=== PATIENT | female | born 1965 | race African-American/Black ===

== ENCOUNTER 2021-05-14 16:32 | Emergency (ER) | payer BC, OTHER ==
[~2021-05-14] VITALS: Ht 170.2 cm; Wt 124.3 kg
[2021-05-14] MEDS ORDERED: RYBELSUS3 MG PO (17:05)
[2021-05-14] MEDS ORDERED: OMEPRAZOLE40 MG PO ×2 (17:06→17:09)
[2021-05-14] MEDS ORDERED: DESLORATADINE5 M1 PO (17:06)
[2021-05-14] MEDS ORDERED: ALLOPURINOL 10100 M1 PO (17:07)
[2021-05-14] MEDS ORDERED: AVAPRO 150 MG150 M1 PO (17:07)
[2021-05-14] MEDS ORDERED: BLISOVI 24 FE1 EACH PO (17:07)
[2021-05-14] MEDS ORDERED: CENTRUM SILVER1 EAC6 PO (17:08)
[2021-05-14] MEDS ORDERED: SINGULAIR 10 MG10 MG PO (17:08)
[2021-05-14] MEDS ORDERED: COLCRYS0.6 MG PO (17:08)
[2021-05-14] MEDS ORDERED: PRAVACHOL 20 MG20 M1 PO (17:09)
[2021-05-14] MEDS ORDERED: VENLAFAXINE HCL75 M2 PO (17:09)
[2021-05-14] MEDS ORDERED: ALPRAZOLAM 0.50.5 MG PO (17:10)
[2021-05-14 17:43] LABS: ABSOLUTE NEUTROPHILS 3.5 thou/uL (1.4-8.2); BASOPHILS 0.7 % (0.0-2.0); EOSINOPHILS 5.8 % (0.0-3.0); HEMATOCRIT 41.3 % (37.0-47.0); HEMOGLOBIN 14.2 gm/dL (12.0-15.0); LYMPHOCYTES 27.8 % (24.0-44.0); MCH 29.8 pg (26.0-34.0); MCHC 34.3 g/dL (28.0-37.0); MONOCYTES 10.4 % (1.0-8.0); PLATELET COUNT 270 thou/uL (150-400); POLYS 55.3 % (36.0-66.0); RBC 4.75 mil/uL (4.20-5.00); RDW 13.8 % (10.5-14.5); WBC 6.4 thou/uL (4.0-11.0)
[2021-05-14 17:50] LABS: ANION GAP 9 mmol/L (7-16); BUN 18 mg/dL (7-18); CALCIUM 9.1 mg/dL (8.5-10.1); CHLORIDE 105 mmol/L (98-107); CO2 27 mmol/L (21-32); CREATININE 1.3 mg/dL (0.6-1.0); GLUCOSE 87 mg/dL (74-106); POTASSIUM 3.8 mmol/L (3.5-5.1); SODIUM 141 mmol/L (136-145)
[2021-05-14 18:00] LABS: ALBUMIN 3.8 g/dL (3.4-5.0); MAGNESIUM 2.2 mg/dL (1.8-2.4); SGOT 24 U/L (15-37); SGPT 33 U/L (30-65); TOTAL BILIRUBIN 0.4 mg/dL (0.2-1.0); TOTAL PROTEIN 7.3 g/dL (6.4-8.2); TROPONIN-I <0.06 ng/mL (<0.06)
[2021-05-14 18:43] VITALS: BP 152/78
--- NOTE | 2021-05-15 11:08 | EKG ---
[place] [address] [facility] [place] [address] ELECTROCARDIOGRAM REPORT Name: PATRICIAZAHEER Room #: DEP [facility] [id number] Admission: 05/14/21 Attend Phys: Discharge: 05/14/21 Date of : 65 Report #: [id number] [facility] ED Test Date: 2021-05-14 Test Time: 16:40:56 Pat Name: ZAHEER GOMEZ Department: Room: Gender: F [employer]: NAEL : 1965 Requested By: Zayra Nielson Order Number: [id number] MD: Marcos Nava Measurements Intervals [place] Rate: 92 P: 70 VA: 152 QRS: 19 QRSD: 84 T: 11 QT: 326 QTc: 404 Interpretive Statements Sinus rhythm Compared to ECG 05/01/2008 06:50:08 No significant changes Electronically Signed On 05-15-2021 11:08:39 CDT by Marcos Nava [email or web address] <ELECTRONICALLY SIGNED> By: Marcos Nava MD, [facility] 05/15/21 1108 [id number] Olive Nava MD, FACC /EPI
== END 2021-05-14 18:44 | disposition home or self-care (01) ==
LOC: ER 16:32
PROVIDERS: Emergency Medicine
DX: M79.89 Other specified soft tissue disorders (principal); R00.2 Palpitations; E78.00 Pure hypercholesterolemia, unspecified; I10 Essential (primary) hypertension; E11.9 Type 2 diabetes mellitus without complications; Z79.899 Other long term (current) drug therapy; Z88.5 Allergy status to narcotic agent; Z91.018 Allergy to other foods